=== PATIENT | female | born 1995 ===

== ENCOUNTER 2017-09-16 20:42 | Emergency (ER) | payer SELFPAY ==
[~2017-09-16] VITALS: Ht 165.1 cm; Wt 103.4 kg
[2017-09-16 21:55] LABS: MICROSCOPIC NOT IND
[2017-09-16 22:34] LABS: BASOPHILS % (AUTO) 0 % (0-1); EOSINOPHILS # (AUTO) 0.13 x10^3/uL (0-0.4); EOSINOPHILS % (AUTO) 2 % (1-7); LYMPHOCYTES # (AUTO) 2.08 x10^3/uL (1-3.4); LYMPHOCYTES % (AUTO) 32 % (22-44); MD NO; MEAN CORPUSCULAR HEMOGLOBIN 30.9 pg (27.0-34.8); MEAN CORPUSCULAR HGB CONC 33.5 g/dL (32.4-35.8); MEAN PLATELET VOLUME 8.6 fL (7.4-10.4); MONOCYTES # (AUTO) 0.62 x10^3/uL (0.2-0.8); MONOCYTES % (AUTO) 9 % (2-9); NEUTROPHILS # (AUTO) 3.78 x10^3/uL (1.8-6.8); NEUTROPHILS % (AUTO) 57 % (42-75); PLATELET COUNT 283 x10^3/uL (130-400); RED BLOOD COUNT 4.47 x10^6/uL (3.82-5.3)
[2017-09-16 22:46] LABS: ANION GAP 5 mmol/L (5-15); CALCIUM 8.7 mg/dL (8.5-10.1); CHLORIDE 111 mmol/L (98-107); CREATININE 0.77 mg/dL (0.55-1.02)
[2017-09-17 01:08] VITALS: BP 98/56
== END 2017-09-17 01:10 | disposition home or self-care (01) ==
LOC: ED 23:59
DX: R10.2 Pelvic and perineal pain (principal); R11.2 Nausea with vomiting, unspecified; M54.5 Low back pain; R42 Dizziness and giddiness
CPT/HCPCS: 36415; 76830; 80048; 81003; 84703; 85025; 99285